=== PATIENT | female | born 1970 | race Caucasian/White ===

== ENCOUNTER 2017-06-01 14:15 | Inpatient (IN) | payer MEDICAID, OTHER ==
[~2017-06-01] VITALS: Ht 160 cm; Wt 80.0 kg
[~2017-06-01 14:15] MED LIST: DICL75 PO
[2017-06-01] MEDS ORDERED: IOHEXOL 350 MG/ML 10 ML VIAL (for RAD DIAG) IVCONTRAST ONE (14:16)
[2017-06-01 14:18] VITALS: BP 190/109; PULSE 103; RESP 18; TEMP 97.9; O2SAT 100
[2017-06-01] MEDS ORDERED: SODIUM CHLOR 0.9% 1000 ML INJ 1,000 ML IV SCH (15:08)
--- NOTE | 2017-06-01 15:10 | PD ---
HPI Chief Complaint: Flank/Kidney Pain Time Seen by Provider: 14:53 Travel History International Travel<30 days: No Contact w/Intl Traveler<30days: No Traveled to known affect area: No History of Present Illness HPI 47-year-old female presents emergency department complaining of right flank and mid abdominal pain with bloating that started yesterday. States that she saw bloody urine this morning he decided to come into the emergency department. Nothing makes her pain better or worse. Pain does not radiate. States that she does have a history of kidney stones. Patient admits to nausea without vomiting. States that she has not had a bowel movement in 4 days which is unusual for her. Patient denies fever, chills, chest pain, shortness of breath. Denies chronic medical issues medication use. LMP May 16. [facility] Past Medical History Medical History: Denies Significant Hx Kidney Stones: Yes Tetanus Vaccination: Unknown Influenza Vaccination: No ?: Not LMP: 05/16/17 Past Surgical History Surgical History: No Previous Surgery Social History Alcohol Use: Yes (sometimes) Tobacco Use: Yes Substance Use: No Allergies-Medications (Allergen,Severity, Reaction): Coded Allergies: No Known Allergies (Unverified Allergy, Unknown, 06/01/17) Reported Meds & Prescriptions Reported Meds & Active Scripts Active No Active Prescriptions or Reported Medications Review of Systems Except as stated in HPI: all other systems reviewed are Neg Physical Exam Narrative GENERAL: WD WN, in mild distress SKIN: Warm and dry. HEAD: Atraumatic. Normocephalic. EYES: Pupils equal and round. No scleral icterus. No injection or drainage. ENT: No nasal bleeding or discharge. Mucous membranes pink and moist. NECK: Trachea midline. No JVD. CARDIOVASCULAR: Regular rate and rhythm. RESPIRATORY: No accessory muscle use. Clear to auscultation. Breath sounds equal bilaterally. GASTROINTESTINAL: Abdomen soft, mildly tender diffusely, MUSCULOSKELETAL: Extremities without clubbing, cyanosis, or edema. No obvious deformities. CVAT right sided. NEUROLOGICAL: Awake and alert. No obvious cranial nerve deficits. Motor grossly within normal limits. Five out of 5 muscle strength in the arms and legs. Normal speech. PSYCHIATRIC: Appropriate mood and affect; insight and judgment normal. Data Data Last Documented VS Vital Signs Date Time Temp Pulse Resp B/P (MAP) Pulse Ox O2 Delivery O2 Flow Rate FiO2 06/01/17 17:39 69 17 151/76 (101) 99 06/01/17 16:01 Room Air 06/01/17 14:18 97.9 Orders Orders Urinalysis - C+S If Indicated (06/01/17 14:55) Iv Access Insert/Monitor (06/01/17 14:55) Ecg Monitoring (06/01/17 14:55) Ed Urine Pregnancytest Poc (06/01/17 14:55) Complete Blood Count With Diff (06/01/17 15:08) Comprehensive Metabolic Panel (06/01/17 15:08) Lipase (06/01/17 15:08) Prothrombin Time / Inr (Pt) (06/01/17 15:08) Act Partial Throm Time (Ptt) (06/01/17 15:08) Oximetry (06/01/17 15:08) Morphine Inj (Morphine Inj) (06/01/17 15:15) Ondansetron Inj (Zofran Inj) (06/01/17 15:15) Sodium Chlor 0.9% 1000 Ml Inj (Ns 1000 M (06/01/17 15:08) Electrocardiogram (06/01/17 15:08) Ketorolac Inj (Toradol Inj) (06/01/17 15:15) Ct Abd/Pel W Iv Contrast(Rout) (06/01/17 ) Iohexol 350 Inj (Omnipaque 350 Inj) (06/01/17 14:16) Tamsulosin (Flomax) (06/01/17 18:00) Admit Order (Ed Use Only) (06/01/17 18:09) Labs Laboratory Tests Test 06/01/17 15:30 06/01/17 15:40 White Blood Count 6.9 TH/MM3 Red Blood Count 5.01 MIL/MM3 Hemoglobin 8.0 GM/DL Hematocrit 27.8 % Mean Corpuscular Volume 55.5 FL Mean Corpuscular Hemoglobin 16.1 PG Mean Corpuscular Hemoglobin Concent 28.9 % Red Cell Distribution Width 19.7 % Platelet Count 188 TH/MM3 Mean Platelet Volume 9.0 FL Neutrophils (%) (Auto) 77.9 % Lymphocytes (%) (Auto) 13.6 % Monocytes (%) (Auto) 7.3 % Eosinophils (%) (Auto) 0.5 % Basophils (%) (Auto) 0.7 % Neutrophils # (Auto) 5.4 TH/MM3 Lymphocytes # (Auto) 0.9 TH/MM3 Monocytes # (Auto) 0.5 TH/MM3 Eosinophils # (Auto) 0.0 TH/MM3 Basophils # (Auto) 0.1 TH/MM3 CBC Comment AUTO DIFF Differential Comment AUTO DIFF CONFIRMED Platelet Estimate NORMAL Platelet Morphology Comment GIANT Ovalocytes 1+ Keratocytes OCC Prothrombin Time 10.3 SEC Prothromb Time International Ratio 1.0 RATIO Activated Partial Thromboplast Time 23.6 SEC Blood Urea Nitrogen 11 MG/DL Creatinine 0.73 MG/DL Random Glucose 90 MG/DL Total Protein 7.3 GM/DL Albumin 3.7 GM/DL Calcium Level 9.0 MG/DL Alkaline Phosphatase 61 U/L Aspartate Amino Transf (AST/SGOT) 12 U/L Alanine Aminotransferase (ALT/SGPT) 14 U/L Total Bilirubin 0.4 MG/DL Sodium Level 136 MEQ/L Potassium Level 3.5 MEQ/L Chloride Level 105 MEQ/L Carbon Dioxide Level 23.4 MEQ/L Anion Gap 8 MEQ/L Estimat Glomerular Filtration Rate 86 ML/MIN Lipase 107 U/L Urine Color LIGHT-YELLOW Urine Turbidity CLEAR Urine pH 5.5 Urine Specific [place] 1.008 Urine Protein NEG mg/dL Urine Glucose (UA) NEG mg/dL Urine Ketones NEG mg/dL Urine Occult Blood MOD Urine Nitrite NEG Urine Bilirubin NEG Urine Urobilinogen LESS THAN 2.0 MG/DL Urine Leukocyte Esterase SMALL Urine RBC 7 /hpf Urine WBC 2 /hpf Urine Squamous Epithelial Cells <1 /hpf Urine Bacteria OCC /hpf Urine Hyaline Casts 1 /lpf Urine Mucus FEW /lpf Microscopic Urinalysis Comment CULT NOT INDICATED MDM Medical Decision Making Medical Screen Exam Complete: Yes Emergency Medical Condition: Yes Differential Diagnosis Pyelonephritis, nephrolithiasis, urinary tract infection, cystitis Narrative Course 47-year-old female presents emergency department complaining of right flank and mid abdominal pain with bloating that started yesterday. States that she saw bloody urine this morning he decided to come into the emergency department. Nothing makes her pain better or worse. Pain does not radiate. States that she does have a history of kidney stones. Patient admits to nausea without vomiting. States that she has not had a bowel movement 4 days which is unusual for her. Patient denies fever, chills, chest pain, shortness of breath. Denies chronic medical issues medication use. LMP May 16. EKG sinus rhythm without STEMI pattern, rate 69 Vital signs stable. Patient administered morphine, toradol, Zofran, IV fluids. CBC & BMP Diagram 06/01/17 15:30 Total Protein 7.3, Albumin 3.7, Calcium Level 9.0, Alkaline Phosphatase 61, Aspartate Amino Transf (AST/SGOT) 12 L, Alanine Aminotransferase (ALT/SGPT) 14, Total Bilirubin 0.4 Suspect that her anemia is chronic however, she has no known prior history of anemia. UA shows moderate blood, RBCs, leukocyte esterase. Last Impressions Abdomen/Pelvis CT 06/01/17 0000 Signed Impressions: Service Date/Time: Thursday, June 01, 2017 17:08 - CONCLUSION: 1. 5 x 10 mm proximal right ureteral calculus with mild hydroureter and hydronephrosis. 2. Cystic structure in the right adnexa. Niall Rangel MD After discussion with the patient the findings of the abdomen CT, I advised that she remain in the hospital for observation. Patient did agree. Patient continues to deny history of anemia. States her pain is well controlled with the medications given today which includes morphine, Toradol, IV fluids. Patient denies nausea or vomiting at this time. Flomax administered. Patient be admitted for observation. Urology consult recommended. Consider hematology consult. Diagnosis Primary Impression: Anemia Qualified Codes: D64.89 - Other specified anemias Additional Impressions: Hydronephrosis Qualified Codes: N13.2 - Hydronephrosis with renal and ureteral calculous obstruction Nephrolithiasis Admitting Information Admitting Physician Requests: Observation Scripts No Active Prescriptions or Reported Meds Condition: Stable Kelsey Stanley Jun 01, 2017 15:10
[2017-06-01] MEDS ORDERED: MORPHINE SULFATE 4 MG/ML INJ IV PUSH ONE (15:15)
[2017-06-01] MEDS ORDERED: ONDANSETRON HCL 4 MG/2 ML VIAL IVP ONE (15:15)
[2017-06-01] MEDS ORDERED: KETOROLAC TROMETHAMINE 60 MG/2 ML (IM) VIAL IM ONE (15:15)
[2017-06-01 16:01] VITALS: BP 170/94; PULSE 86; RESP 18; O2SAT 100
[2017-06-01 16:28] LABS: AUTOMATED NEUTROPHIL # 5.4 TH/MM3 (1.8-7.7); BASOPHIL # 0.1 TH/MM3 (0-0.2); BASOPHIL % 0.7 % (0.0-2.0); EOSINOPHIL % 0.5 % (0.0-4.0); HEMATOCRIT 27.8 % (35.0-46.0); LYMPH % 13.6 % (9.0-44.0); LYMPHOCYTE # 0.9 TH/MM3 (1.0-4.8); MEAN CELL VOLUME 55.5 FL (80.0-100.0); MEAN CORPUSCULAR HEMOGLOBIN 16.1 PG (27.0-34.0); MONO % 7.3 % (0.0-8.0); MONOCYTE # 0.5 TH/MM3 (0-0.9); NEUT % 77.9 % (16.0-70.0); PLATELET COUNT 188 TH/MM3 (150-450); RED BLOOD COUNT 5.01 MIL/MM3 (4.00-5.30); RED CELL DISTRIBUTION WIDTH 19.7 % (11.6-17.2); WHITE BLOOD COUNT 6.9 TH/MM3 (4.0-11.0)
[2017-06-01 16:31] LABS: ALBUMIN 3.7 GM/DL (3.4-5.0); AST (GOT) 12 U/L (15-37); BICARBONATE 23.4 MEQ/L (21.0-32.0); BLOOD UREA NITROGEN 11 MG/DL (7-18); CHLORIDE 105 MEQ/L (98-107); CREATININE 0.73 MG/DL (0.50-1.00); GLOMERULAR FILTRATION RATE 86 ML/MIN (>89); GLUCOSE,RANDOM 90 MG/DL (74-106); PROTHROMBIN TIME - PATIENT 10.3 SEC (9.8-11.6); SODIUM (NA) 136 MEQ/L (136-145)
[2017-06-01 16:33] LABS: ALT (GPT) 14 U/L (10-53)
[2017-06-01 16:34] LABS: ALKALINE PHOSPHATASE 61 U/L (45-117); MEAN CORPUSCULAR HGB CONC 28.9 % (32.0-36.0); TOTAL BILIRUBIN ADULT 0.4 MG/DL (0.2-1.0); TOTAL PROTEIN 7.3 GM/DL (6.4-8.2)
[2017-06-01 16:35] LABS: BACTERIA, URINE OCC /hpf; BILIRUBIN, URINE NEG (NEG); BLOOD, URINE MOD (NEG); GLUCOSE,URINE NEG (NEG); HYALINE CAST, URINE 1 /lpf (RARE); KETONE, URINE NEG (NEG); MUCUS URINE FEW /lpf (OCC); NITRITE,URINE NEG (NEG); PH, URINE 5.5 (5.0-8.5); SQUAMOUS EPITHELIAL CELL URINE <1 /hpf (0-5); URINE COLOR LIGHT-YELLOW (YELLW/STRAW); URINE LEUKOCYTE ESTERASE SMALL (NEG)
[2017-06-01 17:23] LABS: KERATOCYTES OCC (NORMAL); OVALOCYTES 1+ (NORMAL)
[2017-06-01 17:39] VITALS: BP 151/76; PULSE 69; RESP 17; O2SAT 99
--- NOTE | 2017-06-01 17:42 | RADRPT ---
EXAM DATE/TIME: 06/01/2017 17:08 [facility] COMPARISON: No previous studies available for comparison. INDICATIONS : Patient complains of right flank pain. IV CONTRAST: 96 cc Omnipaque 350 (iohexol) IV ORAL CONTRAST: No oral contrast ingested. RADIATION DOSE: 8.24 CTDIvol (mGy) MEDICAL HISTORY : Renal calculi. SURGICAL HISTORY : None. ENCOUNTER: Initial ACUITY: 1 day PAIN SCALE: 5/10 LOCATION: Right flank TECHNIQUE: Volumetric scanning of the abdomen and pelvis was performed. Using automated exposure control and ad justment of the mA and/or kV according to patient size, radiation dose was kept as low as reasonably achievable to obtain optimal diagnostic quality images. DICOM format image data is available electro nically for review and comparison. FINDINGS: LOWER LUNGS: The visualized lower lungs are clear. LIVER: Homogeneous density without lesion. There is no dilation of the biliary tree. No calcified gallston es. SPLEEN: Normal size without lesion. PANCREAS: Within normal limits. KIDNEYS: The left kidney is unremarkable in appearance. There is mild right hydronephrosis with dilatation of the proximal right ureter down to a 5 x 10 mm proximal right ureteral calculus. The ureter below this point appears unremarkable. The left ureter is within normal limits. ADRENAL GLANDS: Within normal limits. VASCULAR: There is no aortic aneurysm. BOWEL/MESENTERY: The stomach, small bowel, and colon demonstrate no acute abnormality. There is no free intraperitone al air or fluid. ABDOMINAL WALL: Within normal limits. RETROPERITONEUM: There is no lymphadenopathy. BLADDER: No wall thickening or mass. REPRODUCTIVE: Within normal limits. INGUINAL: There is no lymphadenopathy or hernia. MUSCULOSKELETAL: Within normal limits for patient age. CONCLUSION: 1. 5 x 10 mm proximal right ureteral calculus with mild hydroureter and hydronephrosis. 2. Cystic structure in the right adnexa. Niall Rangel MD on June 01, 2017 at 17:32 Board Certified Radiologist. This report was verified electronically.
[2017-06-01] MEDS ORDERED: TAMSULOSIN HCL 0.4 MG CAP PO ONE (18:00)
--- NOTE | 2017-06-01 18:27 | HHI.HP ---
[facility] Service [facility] Primary Care Physician No Primary Care Physician Admission Diagnosis Hydronephrosis, nephrolithiasis Diagnoses: (1) Anemia Diagnosis: Principal (2) Nephrolithiasis Diagnosis: Principal (3) Hydronephrosis Diagnosis: Principal Chief Complaint: right-sided flank pain Travel History International Travel<30 Days: No Contact w/Intl Traveler <30 Da: No Traveled to Known Affected Are: No History of Present Illness patient is a 47 y/o female with history of kidney stone who presented to ER with right-sided flank pain. she says that the pain started yesterday and gradually got worse. pain was associated with nausea, chills and hematuria. she denies any fever, vomiting. she was found to have anemia at the time of presentation. on further questioning she says that she heavy menstrual bleeding in the past although they've been regular. she denies any blood in the stool or dark stools. Review of Systems Constitutional: COMPLAINS OF: Chills Gastrointestinal: COMPLAINS OF: Abdominal pain, Nausea Past Family Social History Past Medical History hypertension? Past Surgical History none reported. Reported Medications none reported. Allergies: Coded Allergies: No Known Allergies (Unverified Allergy, Unknown, 06/01/17) Active Ordered Medications Inpatient Medications Ketorolac Tromethamine (Toradol Inj) 60 mg ONCE ONCE IM Last administered on at 15:55; Start 06/01/17 at 15:15; Stop 06/01/17 at 15:16; Status DC Morphine Sulfate (Morphine Inj) 4 mg ONCE ONCE IV PUSH Last administered on 06/01/17at 15:54; Start 06/01/17 at 15:15; Stop 06/01/17 at 15:16; Status DC Ondansetron HCl (Zofran Inj) 4 mg ONCE ONCE IVP Last administered on 06/01/17at 15:54; Start 06/01/17 at 15:15; Stop 06/01/17 at 15:16; Status DC Sodium Chloride 1,000 ml @ 1,000 mls/hr Q1H IV Last administered on 06/01/17at 15:54; Start 06/01/17 at 15:08; Stop 06/01/17 at 16:07; Status DC Tamsulosin HCl (Flomax) 0.4 mg ONCE ONCE PO ; Start 06/01/17 at 18:00; Stop 06/01 at 18:01; Status DC Family History not relevant to this presentation. Social History smokes ten cigarettes a day- drinks occasionally. Physical Exam Vital Signs Vital Signs Date Time Temp Pulse Resp B/P (MAP) Pulse Ox O2 Delivery O2 Flow Rate FiO2 06/01/17 17:39 69 17 151/76 (101) 99 06/01/17 16:01 86 18 170/94 (119) 100 Room Air 06/01/17 14:18 97.9 103 18 190/109 (136) 100 Physical Exam GENERAL: This is a well-nourished, well-developed patient, in no apparent distress. SKIN: No rashes, ecchymoses or lesions. Cool and dry. HEAD: Atraumatic. Normocephalic. No temporal or scalp tenderness. EYES: Pupils equal round and reactive. Extraocular motions intact. No scleral icterus. No injection or drainage. ENT: Nose without bleeding, purulent drainage or septal hematoma. Throat without erythema, tonsillar hypertrophy or exudate. Uvula midline. Airway patent. NECK: Trachea midline. No JVD or lymphadenopathy. Supple, nontender, no meningeal signs. CARDIOVASCULAR: Regular rate and rhythm without murmurs, gallops, or rubs. RESPIRATORY: Clear to auscultation. Breath sounds equal bilaterally. No wheezes , rales, or rhonchi. GASTROINTESTINAL: Abdomen soft,right flank tenderness, nondistended. No hepato- splenomegaly, or palpable masses. No guarding. MUSCULOSKELETAL: Extremities without clubbing, cyanosis, or edema. No joint tenderness, effusion, or edema noted. No calf tenderness. Negative Homans sign bilaterally. NEUROLOGICAL: Awake and alert. Cranial nerves II through XII intact. Motor and sensory grossly within normal limits. Five out of 5 muscle strength in all muscle groups. Normal speech. Laboratory Laboratory Tests Test 06/01/17 15:30 06/01/17 15:40 White Blood Count 6.9 Red Blood Count 5.01 Hemoglobin 8.0 Hematocrit 27.8 Mean Corpuscular Volume 55.5 Mean Corpuscular Hemoglobin 16.1 Mean Corpuscular Hemoglobin Concent 28.9 Red Cell Distribution Width 19.7 Platelet Count 188 Mean Platelet Volume 9.0 Neutrophils (%) (Auto) 77.9 Lymphocytes (%) (Auto) 13.6 Monocytes (%) (Auto) 7.3 Eosinophils (%) (Auto) 0.5 Basophils (%) (Auto) 0.7 Neutrophils # (Auto) 5.4 Lymphocytes # (Auto) 0.9 Monocytes # (Auto) 0.5 Eosinophils # (Auto) 0.0 Basophils # (Auto) 0.1 CBC Comment AUTO DIFF Differential Comment AUTO DIFF CONFIRMED Platelet Estimate NORMAL Platelet Morphology Comment GIANT Ovalocytes 1+ Keratocytes OCC Prothrombin Time 10.3 Prothromb Time International Ratio 1.0 Activated Partial Thromboplast Time 23.6 Blood Urea Nitrogen 11 Creatinine 0.73 Random Glucose 90 Total Protein 7.3 Albumin 3.7 Calcium Level 9.0 Alkaline Phosphatase 61 Aspartate Amino Transf (AST/SGOT) 12 Alanine Aminotransferase (ALT/SGPT) 14 Total Bilirubin 0.4 Sodium Level 136 Potassium Level 3.5 Chloride Level 105 Carbon Dioxide Level 23.4 Anion Gap 8 Estimat Glomerular Filtration Rate 86 Lipase 107 Urine Color LIGHT-YELLOW Urine Turbidity CLEAR Urine pH 5.5 Urine Specific [place] 1.008 Urine Protein NEG Urine Glucose (UA) NEG Urine Ketones NEG Urine Occult Blood MOD Urine Nitrite NEG Urine Bilirubin NEG Urine Urobilinogen LESS THAN 2.0 Urine Leukocyte Esterase SMALL Urine RBC 7 Urine WBC 2 Urine Squamous Epithelial Cells <1 Urine Bacteria OCC Urine Hyaline Casts 1 Urine Mucus FEW Microscopic Urinalysis Comment CULT NOT INDICATED Result Diagram: 06/01/17 1530 06/01/17 1530 Imaging Last Impressions Abdomen/Pelvis CT 06/01/17 0000 Signed Impressions: Service Date/Time: Thursday, June 01, 2017 17:08 - CONCLUSION: 1. 5 x 10 mm proximal right ureteral calculus with mild hydroureter and hydronephrosis. 2. Cystic structure in the right adnexa. MD Chandrakant Valdez VTE Risk Assessment Capmary bethi VTE Risk Assessment: Mod/High Risk (score >= 2) Caprini Risk Assessment Model Point Value = 1 Point Value = 2 Point Value = 3 Point Value = 5 Age 41-60 Minor surgery BMI > 25 kg/m2 Swollen legs Varicose veins or History of unexplained or recurrent spontaneous Oral contraceptives or hormone replacement Sepsis (< 1 month) Serious lung disease, including pneumonia (< 1 month) Abnormal pulmonary function Acute myocardial infarction Congestive heart failure (< 1 month) History of inflammatory bowel disease Medical patient at bed rest Age 61-74 Arthroscopic surgery Major open surgery (> 45 min) Laparoscopic surgery (> 45 min) Malignancy Confined to bed (> 72 hours) Immobilizing plaster cast Central venous access Age >= 75 History of VTE Family history of VTE Factor V Leiden Prothrombin [id number] Lupus anticoagulant Anticardiolipin antibodies Elevated serum homocysteine Heparin-induced thrombocytopenia Other congenital or acquired thrombophilia Stroke (< 1 month) Elective arthroplasty Hip, pelvis, or leg fracture Acute spinal cord injury (< 1 month) Prophylaxis Regimen Total Risk Factor Score Risk Level Prophylaxis Regimen 0-1 Low Early ambulation 2 Moderate Order ONE of the following: *Sequential Compression Device (SCD) *Heparin 5000 units SQ BID 3-4 Higher Order ONE of the following medications: *Heparin 5000 units SQ TID *Enoxaparin/Lovenox 40 mg SQ daily (WT < 150 kg, CrCl > 30 mL/min) *Enoxaparin/Lovenox 30 mg SQ daily (WT < 150 kg, CrCl > 10-29 mL/min) *Enoxaparin/Lovenox 30 mg SQ BID (WT < 150 kg, CrCl > 30 mL/min) AND/OR *Sequential Compression Device (SCD) 5 or more Highest Order ONE of the following medications: *Heparin 5000 units SQ TID (Preferred with Epidurals) *Enoxaparin/Lovenox 40 mg SQ daily (WT < 150 kg, CrCl > 30 mL/min) *Enoxaparin/Lovenox 30 mg SQ daily (WT < 150 kg, CrCl > 10-29 mL/min) *Enoxaparin/Lovenox 30 mg SQ BID (WT < 150 kg, CrCl > 30 mL/min) AND *Sequential Compression Device (SCD) Assessment and Plan Assessment and Plan A/P - nephrolithiasis with right-sided hydronephrosis start on Flomax- continue with pain control, and antiemetics as needed- consult Urology. -anemia- hypochromic, microcytic-likely due to abnormal uterine bleeding. check iron panel- will monitor H/H for now; CBC in am. -questionable history of hypertension; vasotec prn - will monitor BP for now. -DVT prophylaxis with SDD's. Discussed Condition With ER physician and the patient. Problem Qualifiers (1) Anemia: Qualified Codes: D64.89 - Other specified anemias (2) Hydronephrosis: Qualified Codes: N13.2 - Hydronephrosis with renal and ureteral calculous obstruction Jonn Lombardi MD Jun 01, 2017 18:27
[2017-06-01] MEDS ORDERED: ENALAPRILAT 1.25 MG/ML VIAL IV PUSH PRN (18:30)
[2017-06-01] MEDS ORDERED: ONDANSETRON HCL 4 MG/2 ML VIAL IV PUSH PRN (18:30)
[2017-06-01] MEDS ORDERED: MORPHINE SULFATE 2 MG/ML INJ IV PUSH PRN (18:30)
[2017-06-01 19:41] VITALS: BP 169/95; PULSE 75; RESP 16; TEMP 98.5; O2SAT 100
[2017-06-01] MEDS: SODIUM CHLOR 0.9% 1000 ML INJ 1,000 ML IV SCH (20:01)
[2017-06-01] MEDS: ACETAMINOPHEN/HYDROcodone 325 MG/5 MG TAB PO PRN (20:14)
[2017-06-01 20:26] LABS: IRON (FE) 13 MCG/DL (50-170)
[2017-06-01 20:33] LABS: % SATURATION IRON PROFILE 2.8 % (20-50); FERRITIN 2 NG/ML (8-252); TOTAL IRON BINDING CAPACITY 472 MCG/DL (250-450)
[2017-06-01 22:43] VITALS: BP 114/73; PULSE 79; RESP 16; TEMP 98.7; O2SAT 99
[2017-06-02] MEDS: SODIUM CHLOR 0.9% 1000 ML INJ 1,000 ML IV SCH ×2 (03:14→13:32)
[2017-06-02 03:16] VITALS: BP 143/75; PULSE 80; RESP 18; TEMP 98.2; O2SAT 100
[2017-06-02 06:50] LABS: AUTOMATED NEUTROPHIL # 3.6 TH/MM3 (1.8-7.7); BASOPHIL % 0.7 % (0.0-2.0); EOSINOPHIL # 0.1 TH/MM3 (0-0.4); EOSINOPHIL % 1.7 % (0.0-4.0); HEMATOCRIT 24.6 % (35.0-46.0); LYMPH % 22.1 % (9.0-44.0); LYMPHOCYTE # 1.2 TH/MM3 (1.0-4.8); MEAN CELL VOLUME 55.6 FL (80.0-100.0); MEAN CORPUSCULAR HEMOGLOBIN 15.7 PG (27.0-34.0); MEAN PLATELET VOLUME 9.1 FL (7.0-11.0); MONO % 10.4 % (0.0-8.0); MONOCYTE # 0.6 TH/MM3 (0-0.9); NEUT % 65.1 % (16.0-70.0); PLATELET COUNT 168 TH/MM3 (150-450); RED BLOOD COUNT 4.43 MIL/MM3 (4.00-5.30); RED CELL DISTRIBUTION WIDTH 19.8 % (11.6-17.2); WHITE BLOOD COUNT 5.5 TH/MM3 (4.0-11.0)
[2017-06-02 06:52] LABS: MEAN CORPUSCULAR HGB CONC 28.3 % (32.0-36.0)
[2017-06-02 07:52] LABS: OVALOCYTES 1+ (NORMAL)
[2017-06-02 08:23] VITALS: BP 120/55; PULSE 58; RESP 20; TEMP 98.2; O2SAT 96
[2017-06-02] MEDS: TAMSULOSIN HCL 0.4 MG CAP PO SCH (08:57)
--- NOTE | 2017-06-02 11:29 | HHI.PR ---
Subjective Remarks Follow-up for nephrolithiasis Patient stated that pain is better controlled but she continues have pain. Pain described in the B/L groin area. Deny any nausea or vomiting. Deny any fevers. Patient currently nothing by mouth awaiting for recommendation from neurologist. Her hemoglobin also is 7.0. She denies any active bleeding. Deny any chest pain, shortness of breathing, lightheadedness or dizziness. Patient stated that she has not seen a doctor at all. She stated that she moved here from [place] 3 years ago. She stated that at times she does have heavy bleeding with the last 3 months has been normal. Objective Vitals Vital Signs Date Time Temp Pulse Resp B/P (MAP) Pulse Ox O2 Delivery O2 Flow Rate FiO2 06/02/17 08:23 98.2 58 20 120/55 (76) 96 06/02/17 05:00 18 06/02/17 03:16 98.2 80 18 143/75 (97) 100 06/01/17 22:43 98.7 79 16 114/73 (87) 99 06/01/17 21:17 18 06/01/17 19:41 98.5 75 16 169/95 (119) 100 06/01/17 17:39 69 17 151/76 (101) 99 06/01/17 16:01 86 18 170/94 (119) 100 Room Air 06/01/17 14:18 97.9 103 18 190/109 (136) 100 I/O 06/01/17 06/01/17 06/01/17 06/02/17 06/02/17 06/02/17 07:00 15:00 23:00 07:00 15:00 23:00 Intake Total 1000 ml 240 ml Balance 1000 ml 240 ml Intake Oral 240 ml IV Total 1000 ml # Voids 3 Result Diagram: 06/02/17 0527 06/01/17 1530 Objective Remarks GENERAL: in NAD NECK: Supple, trachea midline. No JVD or lymphadenopathy. CARDIOVASCULAR: Regular rate and rhythm without murmurs, gallops, or rubs. RESPIRATORY: Breath sounds equal bilaterally. No accessory muscle use. GASTROINTESTINAL: Abdomen soft and nondistended. B/L lower abdominal pain. MUSCULOSKELETAL: No cyanosis, or edema. BACK: Nontender without obvious deformity. No CVA tenderness. Medications and IVs Current Medications Morphine Sulfate (Morphine Inj) 4 mg ONCE ONCE IV PUSH Last administered on 15:54; Start 06/01/17 at 15:15; Stop 06/01/17 at 15:16; Status DC Ondansetron HCl (Zofran Inj) 4 mg ONCE ONCE IVP Last administered on 06/01/17at 15:54; Start 06/01/17 at 15:15; Stop 06/01/17 at 15:16; Status DC Sodium Chloride 1,000 ml @ 1,000 mls/hr Q1H IV Last administered on 06/01/17at 15:54; Start 06/01/17 at 15:08; Stop 06/01/17 at 16:07; Status DC Ketorolac Tromethamine (Toradol Inj) 60 mg ONCE ONCE IM Last administered on at 15:55; Start 06/01/17 at 15:15; Stop 06/01/17 at 15:16; Status DC Iohexol (Omnipaque 350 Inj) 96 ml STK-MED ONCE IVCONTRAST Last administered on 06/01/17 17:21; Start 06/01/17 at 14:16; Stop 06/01/17 at 17:20; Status DC Tamsulosin HCl (Flomax) 0.4 mg ONCE ONCE PO Last administered on 06/01/17 20: 01; Start 06/01/17 at 18:00; Stop 06/01/17 at 18:01; Status DC Sodium Chloride 1,000 ml @ 100 mls/hr Q10H IV Last administered on 06/02/17 03 :14; Start 06/01/17 at 18:30 Ondansetron HCl (Zofran Inj) 4 mg Q8HR PRN IV PUSH NAUSEA; Start 06/01/17 at 18: 30 Acetaminophen/ Hydrocodone Bitart ([place] 5-325 Mg) 1 tab Q4H PRN PO PAIN 1-5 Last administered on 06/01/17at 20:14; Start 06/01/17 at 18:30 Morphine Sulfate (Morphine Inj) 2 mg Q4H PRN IV PUSH PAIN 6-10 Last administered on 06/02/17 03:14; Start 06/01/17 at 18:30 Enalaprilat (Vasotec Inj) 1.25 mg Q8H PRN IV PUSH SBP> OR = 180, DBP> OR = 100 ; Start 06/01/17 at 18:30 Tamsulosin HCl (Flomax) 0.4 mg DAILY PO Last administered on 06/02/17at 08:57; Start 06/02/17 at 09:00 A/P Problem List: (1) Anemia ICD Code: D64.9 - Anemia, unspecified Status: Acute (2) Nephrolithiasis ICD Code: N20.0 - Calculus of kidney Status: Acute (3) Hydronephrosis ICD Code: N13.30 - Unspecified hydronephrosis Status: Acute Assessment and Plan This is a 47-year-old female who presented with abdominal pain Nephrolithiasis with right-sided hydronephrosis -Found on CT scan of the abdomen/pelvis. -Patient currently on start on Flomax - continue with pain control, and antiemetics as needed -Pending neurologist consult. Anemia -Hemoglobin dropped significantly today but may also be due to dehydration. Most likely this is due to abnormal uterine bleeding. Will recheck hemoglobin, TSH and do a transvaginal ultrasound. -Reviewed iron studies which suggests iron deficiency anemia. -Will start patient on ferrous sulfate. DVT prophylaxis with SCD's. Problem Qualifiers (1) Anemia: Qualified Codes: D64.89 - Other specified anemias (2) Hydronephrosis: Qualified Codes: N13.2 - Hydronephrosis with renal and ureteral calculous obstruction Greer Smith MD Jun 02, 2017 11:29
[2017-06-02 11:53] VITALS: BP 122/60; PULSE 80; RESP 18; TEMP 98.6; O2SAT 98
[2017-06-02] MEDS: KETOROLAC TROMETHAMINE 30 MG/ML (IVP) VIAL IV PUSH SCH ×2 (13:32→18:00)
--- NOTE | 2017-06-02 14:43 | RADRPT ---
EXAM DATE/TIME: 06/02/2017 13:04 [facility] COMPARISON: No previous studies available for comparison. INDICATIONS : Right sided pelvic pain. Anemic. MEDICAL HISTORY : Hypertension. Renal calculi. Abdominal/pelvic pain. Tobacco use. SURGICAL HISTORY : None. ENCOUNTER: Initial ACUITY: 2 days PAIN SCORE: 7/10 LOCATION: Bilateral pelvis MEASUREMENTS: UTERUS: 10.5 x 7.1 x 6.2 cm ENDOMETRIAL STRIPE: >20 mm RIGHT OVARY: 2.9 x 3.7 x 2.2 cm LEFT OVARY: 3.0 x 2.6 x 1.7 cm FINDINGS: UTERUS: The myometrium has homogeneous echotexture without mass. Endometrium is prominent. Nabothian cyst se en measuring 2.4 cm. Hypoechoic area lower uterine segment measures 11 x 12 x 10 mm likely leiomyoma. RIGHT OVARY: Complex cysts containing internal echoes and septations measures 21 x 18 x 21 mm. LEFT OVARY: Ovary contains no mass or significant cystic lesion. MISCELLANEOUS: No free fluid. CONCLUSION: 1. Prominent endometrium likely related to normal phase of menstrual cycle. 2. Probable uterine leiomyoma measuring 1.2 cm. 3. Small complex cysts right ovary measures 2.1 cm. Chris Hilton MD on June 02, 2017 at 14:38 Board Certified Radiologist. This report was verified electronically.
--- NOTE | 2017-06-02 15:17 | EKG ---
Date Performed: 06/01/2017 Time Performed: 17:22:14 PTAGE: 47 years EKG: Sinus rhythm POSSIBLE RIGHT VENTRICULAR CONDUCTION DELAY NONSPECIFIC T-WAVE ABNORMALITY BORDERLINE ECG NO PREVIOUS TRACING DOCTOR: Sameer Gómez Interpretating Date/Time 06/02/2017 15:17:07
--- NOTE | 2017-06-02 16:54 | PD.CONS ---
HPI Service Urology Consult Requested By Primary Care Physician No Primary Care Physician Diagnosis: (1) Anemia ICD Code: D64.9 - Anemia, unspecified (2) Nephrolithiasis ICD Code: N20.0 - Calculus of kidney (3) Hydronephrosis ICD Code: N13.30 - Unspecified hydronephrosis History of Present Illness 47yo female with history of nephrolithiasis seen in consultation for right obstructing ureteral stone. Patient reports her pain began about 2 days ago and has progressively worsened. She describes the pain as sharp and stabbing located in the right flank, intermittent however 10/10. No fevers. Some Nausea, no vomiting. She has had stones in the past, however never required surgical intervention. Review of Systems ROS Limitations: Clinical Condition Constitutional: DENIES: Fever Endocrine: DENIES: Polydipsia Ears, nose, mouth, throat: DENIES: Hearing loss Respiratory: DENIES: Cough Cardiovascular: DENIES: Chest pain Gastrointestinal: COMPLAINS OF: Abdominal pain, Nausea, DENIES: Vomiting Genitourinary: COMPLAINS OF: Urinary frequency Musculoskeletal: COMPLAINS OF: Back pain Hematologic/lymphatic: DENIES: Bruising Neurologic: DENIES: Headache Psychiatric: DENIES: Anxiety Except as stated in HPI: all other systems reviewed are Neg Past Family Social History Past Medical History Questionable HTN Past Surgical History No past surgeries Reported Medications Reported Meds & Active Scripts Active No Active Prescriptions or Reported Medications Allergies: Coded Allergies: No Known Allergies (Unverified Allergy, Unknown, 06/01/17) Active Ordered Medications Current Medications Medications (Trade) Dose Ordered Sig/Jay Route Start Time Stop Time Status Last Admin Sodium Chloride 1,000 ml @ 100 mls/hr Q10H IV 06/01/17 18:30 06/03/17 08:27 (Zofran Inj) 4 mg Q8HR PRN IV PUSH 06/01/17 18:30 ([place] 5-325 Mg) 1 tab Q4H PRN PO 06/01/17 18:30 06/03/17 02:49 (Morphine Inj) 2 mg Q4H PRN IV PUSH 06/01/17 18:30 06/02/17 03:14 (Vasotec Inj) 1.25 mg Q8H PRN IV PUSH 06/01/17 18:30 (Flomax) 0.4 mg DAILY PO 06/02/17 09:00 06/03/17 08:26 (Ferrous Sulfate) 325 mg BID PO 06/02/17 21:00 06/03/17 08:26 (Toradol Inj) 15 mg TID IV PUSH 06/02/17 13:00 06/07/17 12:59 06/03/17 08:27 Family History Family history reviewed and noncontributory to present illness Social History No Etoh, Positive smoking history Physical Exam Vital Signs Date Time Temp Pulse Resp B/P (MAP) Pulse Ox O2 Delivery O2 Flow Rate FiO2 06/02/17 11:53 98.6 80 18 122/60 (80) 98 06/02/17 08:23 98.2 58 20 120/55 (76) 96 06/02/17 05:00 18 06/02/17 03:16 98.2 80 18 143/75 (97) 100 06/01/17 22:43 98.7 79 16 114/73 (87) 99 06/01/17 21:17 18 06/01/17 19:41 98.5 75 16 169/95 (119) 100 06/01/17 17:39 69 17 151/76 (101) 99 Physical Exam GENERAL: This is a well-nourished, well-developed patient, in no apparent distress. SKIN: No rashes, ecchymoses or lesions. Cool and dry. HEAD: Atraumatic. Normocephalic. EYES: Extraocular motions intact. No scleral icterus. No injection or drainage. ENT: Nose without bleeding, purulent drainage. Airway patent. NECK: Trachea midline. No JVD or lymphadenopathy. CARDIOVASCULAR: Normal pulses RESPIRATORY: Nonlabored GASTROINTESTINAL: Abdomen soft, non-tender, nondistended. GENITOURINARY: Right CVA tenderness MUSCULOSKELETAL: Extremities without clubbing, cyanosis, or edema. NEUROLOGICAL: Awake and alert. Motor and sensory grossly within normal limits. Normal speech. Lab results reviewed: Yes Laboratory Tests Test 06/02/17 05:27 White Blood Count 5.5 Red Blood Count 4.43 Hemoglobin 7.0 Hematocrit 24.6 Mean Corpuscular Volume 55.6 Mean Corpuscular Hemoglobin 15.7 Mean Corpuscular Hemoglobin Concent 28.3 Red Cell Distribution Width 19.8 Platelet Count 168 Mean Platelet Volume 9.1 Neutrophils (%) (Auto) 65.1 Lymphocytes (%) (Auto) 22.1 Monocytes (%) (Auto) 10.4 Eosinophils (%) (Auto) 1.7 Basophils (%) (Auto) 0.7 Neutrophils # (Auto) 3.6 Lymphocytes # (Auto) 1.2 Monocytes # (Auto) 0.6 Eosinophils # (Auto) 0.1 Basophils # (Auto) 0.0 CBC Comment AUTO DIFF Differential Comment AUTO DIFF CONFIRMED Platelet Estimate NORMAL Platelet Morphology Comment ENLARGED Ovalocytes 1+ Result Diagram: 06/02/17 0527 06/01/17 1530 Personally reviewed images: Yes Imaging Last Impressions Pelvis Ultrasound 06/02/17 0000 Signed Impressions: Service Date/Time: Friday, June 02, 2017 13:04 - CONCLUSION: 1. Prominent endometrium likely related to normal phase of menstrual cycle. 2. Probable uterine leiomyoma measuring 1.2 cm. 3. Small complex cysts right ovary measures 2.1 cm. Chris Hilton MD Abdomen/Pelvis CT 06/01/17 0000 Signed Impressions: Service Date/Time: Thursday, June 01, 2017 17:08 - CONCLUSION: 1. 5 x 10 mm proximal right ureteral calculus with mild hydroureter and hydronephrosis. 2. Cystic structure in the right adnexa. Niall Rangel MD Assessment and Plan Problem List: (1) Hydronephrosis ICD Code: N13.30 - Unspecified hydronephrosis Status: Acute (2) Nephrolithiasis ICD Code: N20.0 - Calculus of kidney Status: Acute Assessment and Plan -Discussed findings with patient including size and location of stone. She has a very small chance of passing the stone, therefotre surgical intervention with ureteral stent was recommended to alleviate pain, prevent infection, and protect -At this time, the patient is hesitant to undergo surgery and would like more time with pain control. She agrees to surgery on tomorrow (Sunday) if her pain does not improve -NPO at midnight -Will follow -Potential cysto, right ureteral stent placement Problem Qualifiers (1) Anemia: Qualified Codes: D64.89 - Other specified anemias (2) Hydronephrosis: Qualified Codes: N13.2 - Hydronephrosis with renal and ureteral calculous obstruction Noah Chahal MD Jun 02, 2017 16:54
[2017-06-02 19:59] VITALS: BP 179/81; PULSE 95; RESP 16; TEMP 98.8; O2SAT 100
[2017-06-02] MEDS: FERROUS SULFATE 325 MG (65 MG ELEMENTAL IRON) TAB PO SCH (21:08)
[2017-06-02] MEDS: ACETAMINOPHEN/HYDROcodone 325 MG/5 MG TAB PO PRN (21:09)
[2017-06-02 23:23] VITALS: BP 117/71; PULSE 91; RESP 16; TEMP 98.9; O2SAT 99
[2017-06-03] MEDS: ACETAMINOPHEN/HYDROcodone 325 MG/5 MG TAB PO PRN ×2 (02:49→19:26)
[2017-06-03] MEDS: SODIUM CHLOR 0.9% 1000 ML INJ 1,000 ML IV SCH ×3 (02:50→19:26)
[2017-06-03 03:38] VITALS: BP 124/84; PULSE 76; RESP 16; TEMP 98.4; O2SAT 100
[2017-06-03 07:06] LABS: HEMATOCRIT 24.9 % (35.0-46.0); HEMOGLOBIN 7.1 GM/DL (11.6-15.3); MEAN CELL VOLUME 55.4 FL (80.0-100.0); MEAN CORPUSCULAR HEMOGLOBIN 15.8 PG (27.0-34.0); MEAN PLATELET VOLUME 9.5 FL (7.0-11.0); PLATELET COUNT 167 TH/MM3 (150-450); RED CELL DISTRIBUTION WIDTH 19.8 % (11.6-17.2); WHITE BLOOD COUNT 5.3 TH/MM3 (4.0-11.0)
[2017-06-03 07:08] LABS: MEAN CORPUSCULAR HGB CONC 28.5 % (32.0-36.0)
[2017-06-03 07:24] VITALS: BP 125/80; PULSE 80; RESP 18; TEMP 98; O2SAT 100
[2017-06-03 07:38] LABS: BICARBONATE 25.3 MEQ/L (21.0-32.0); CALCIUM 8.1 MG/DL (8.5-10.1); CREATININE 0.6 MG/DL (0.50-1.00)
[2017-06-03] MEDS: FERROUS SULFATE 325 MG (65 MG ELEMENTAL IRON) TAB PO SCH ×2 (08:26→19:26)
[2017-06-03] MEDS: TAMSULOSIN HCL 0.4 MG CAP PO SCH (08:26)
[2017-06-03] MEDS: KETOROLAC TROMETHAMINE 30 MG/ML (IVP) VIAL IV PUSH SCH ×3 (08:27→16:56)
[2017-06-03 11:11] VITALS: BP 153/83; PULSE 75; RESP 18; TEMP 98.3; O2SAT 100
--- NOTE | 2017-06-03 11:35 | HHI.PR ---
Subjective Remarks Follow-up for kidney stones and hydronephrosis Patient stated that pain is better controlled. She continues to have the pain though. Deny nausea or vomiting. Deny any active bleeding at all. When I went over results with patient's vaginal ultrasound she stated that sporadically she would have very heavy bleeding at times in this is random. Heavy bleeding to last for entire week. At times she would have bleeding for 3 weeks but the heavy bleeding part would be for 1 week. Otherwise no other complaints. Objective Vitals Vital Signs Date Time Temp Pulse Resp B/P (MAP) Pulse Ox O2 Delivery O2 Flow Rate FiO2 06/03/17 11:11 98.3 75 18 153/83 (106) 100 06/03/17 07:24 98.0 80 18 125/80 (95) 100 06/03/17 03:50 20 06/03/17 03:38 98.4 76 16 124/84 (97) 100 06/02/17 23:23 98.9 91 16 117/71 (86) 99 06/02/17 19:59 98.8 95 16 179/81 (113) 100 06/02/17 11:53 98.6 80 18 122/60 (80) 98 I/O 06/02/17 06/02/17 06/02/17 06/03/17 06/03/17 06/03/17 07:00 15:00 23:00 07:00 15:00 23:00 Intake Total 240 ml 1350 ml 900 ml Balance 240 ml 1350 ml 900 ml Intake Oral 240 ml 250 ml IV Total 1100 ml 900 ml # Voids 3 Result Diagram: 06/03/17 0551 06/03/17 0551 Imaging Last Impressions Pelvis Ultrasound 06/02/17 0000 Signed Impressions: Service Date/Time: Friday, June 02, 2017 13:04 - CONCLUSION: 1. Prominent endometrium likely related to normal phase of menstrual cycle. 2. Probable uterine leiomyoma measuring 1.2 cm. 3. Small complex cysts right ovary measures 2.1 cm. Chris Hilton MD Abdomen/Pelvis CT 06/01/17 0000 Signed Impressions: Service Date/Time: Thursday, June 01, 2017 17:08 - CONCLUSION: 1. 5 x 10 mm proximal right ureteral calculus with mild hydroureter and hydronephrosis. 2. Cystic structure in the right adnexa. Niall Rangel MD Objective Remarks GENERAL: in NAD NECK: Supple, trachea midline. No JVD or lymphadenopathy. CARDIOVASCULAR: Regular rate and rhythm without murmurs, gallops, or rubs. RESPIRATORY: Breath sounds equal bilaterally. No accessory muscle use. GASTROINTESTINAL: Abdomen soft and nondistended. B/L lower abdominal pain. MUSCULOSKELETAL: No cyanosis, or edema. BACK: Nontender without obvious deformity. No CVA tenderness. Medications and IVs Current Medications Morphine Sulfate (Morphine Inj) 4 mg ONCE ONCE IV PUSH Last administered on 15:54; Start 06/01/17 at 15:15; Stop 06/01/17 at 15:16; Status DC Ondansetron HCl (Zofran Inj) 4 mg ONCE ONCE IVP Last administered on 06/01/17 15:54; Start 06/01/17 at 15:15; Stop 06/01/17 at 15:16; Status DC Sodium Chloride 1,000 ml @ 1,000 mls/hr Q1H IV Last administered on 06/01/17 15:54; Start 06/01/17 at 15:08; Stop 06/01/17 at 16:07; Status DC Ketorolac Tromethamine (Toradol Inj) 60 mg ONCE ONCE IM Last administered on at 15:55; Start 06/01/17 at 15:15; Stop 06/01/17 at 15:16; Status DC Iohexol (Omnipaque 350 Inj) 96 ml STK-MED ONCE IVCONTRAST Last administered on 06/01/17 17:21; Start 06/01/17 at 14:16; Stop 06/01/17 at 17:20; Status DC Tamsulosin HCl (Flomax) 0.4 mg ONCE ONCE PO Last administered on 06/01/17 20: 01; Start 06/01/17 at 18:00; Stop 06/01/17 at 18:01; Status DC Sodium Chloride 1,000 ml @ 100 mls/hr Q10H IV Last administered on 06/03/17 08 :27; Start 06/01/17 at 18:30 Ondansetron HCl (Zofran Inj) 4 mg Q8HR PRN IV PUSH NAUSEA; Start 06/01/17 at 18: 30 Acetaminophen/ Hydrocodone Bitart ([place] 5-325 Mg) 1 tab Q4H PRN PO PAIN 1-5 Last administered on 06/03/17 02:49; Start 06/01/17 at 18:30 Morphine Sulfate (Morphine Inj) 2 mg Q4H PRN IV PUSH PAIN 6-10 Last administered on 06/02/17 03:14; Start 06/01/17 at 18:30 Enalaprilat (Vasotec Inj) 1.25 mg Q8H PRN IV PUSH SBP> OR = 180, DBP> OR = 100 ; Start 06/01/17 at 18:30 Tamsulosin HCl (Flomax) 0.4 mg DAILY PO Last administered on 06/03/17 08:26; Start 06/02/17 at 09:00 Ferrous Sulfate (Ferrous Sulfate) 325 mg BID PO Last administered on 06/03/17 08:26; Start 06/02/17 at 21:00 Ketorolac Tromethamine (Toradol Inj) 15 mg TID IV PUSH Last administered on 06/03 08:27; Start 06/02/17 at 13:00; Stop 06/07/17 at 12:59 A/P Problem List: (1) Anemia ICD Code: D64.9 - Anemia, unspecified Status: Acute (2) Nephrolithiasis ICD Code: N20.0 - Calculus of kidney Status: Acute (3) Hydronephrosis ICD Code: N13.30 - Unspecified hydronephrosis Status: Acute Assessment and Plan This is a 47-year-old female who presented with abdominal pain Nephrolithiasis with right-sided hydronephrosis -Found on CT scan of the abdomen/pelvis. -Patient currently on start on Flomax - continue with pain control, and antiemetics as needed -Urologist seen patient and patient scheduled for possible stent placement today. Anemia -Hemoglobin stable. TSH within normal limits. -Pelvic/transvaginal ultrasound shows fibroid and a small complex cyst measuring 2.1 cm to be f/u as outpatient. 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 -Patient on ferrous sulfate. DVT prophylaxis with SCD's. Problem Qualifiers (1) Anemia: Qualified Codes: D64.89 - Other specified anemias (2) Hydronephrosis: Qualified Codes: N13.2 - Hydronephrosis with renal and ureteral calculous obstruction Greer Smith MD Jun 03, 2017 11:35
[2017-06-03] MEDS ORDERED: ONDANSETRON HCL 4 MG/2 ML VIAL IV PUSH ONE (12:00)
[2017-06-03] MEDS ORDERED: ePHEDrine/NS 25 MG/5 ML SYRINGE IV ONE (12:00)
[2017-06-03] MEDS ORDERED: LACTATED RINGER'S 1000 ML INJ 1,000 ML IV ONE (12:00)
[2017-06-03] MEDS ORDERED: PHENYLEPH/NS 1000 MCG/10 ML SYR IV ONE (12:00)
[2017-06-03] MEDS ORDERED: ceFAZolin INJ 1,000 MG VIAL IV ONE ×2 (12:00→13:50)
[2017-06-03] MEDS ORDERED: DEXAMETHASONE SOD PHOS 4 MG/ML VIAL IV ONE (12:00)
[2017-06-03] MEDS ORDERED: PROPOFOL 200 MG/20 ML AMP IV ONE (12:00)
[2017-06-03] MEDS ORDERED: LIDOCAINE HCL 1% PF 5 ML SYRINGE OTHER ONE (12:00)
[2017-06-03] MEDS ORDERED: MIDAZOLAM HCL 2 MG/2 ML VIAL ONE (13:03)
--- NOTE | 2017-06-03 14:07 | HHI.PR ---
Subjective Patient symptoms today Successful right ureteral stent placement -Patient is clear for discharge from Urology standpoint -Patient is to followup with Urology in clinic for treatment of her right stone burden and stent removal -Please call with questions Objective Vital Signs Vital Signs Date Time Temp Pulse Resp B/P (MAP) Pulse Ox O2 Delivery O2 Flow Rate FiO2 06/03/17 11:11 98.3 75 18 153/83 (106) 100 06/03/17 07:24 98.0 80 18 125/80 (95) 100 06/03/17 03:50 20 06/03/17 03:38 98.4 76 16 124/84 (97) 100 06/02/17 23:23 98.9 91 16 117/71 (86) 99 06/02/17 19:59 98.8 95 16 179/81 (113) 100 Intake & Output 06/03/17 06/03/17 07:00 19:00 Intake Total 1400 ml Output Total 1 ml Balance 1399 ml IV Total 1400 ml Output Estimated Blood Loss 1 ml Result Diagram: 06/03/17 0551 06/03/17 0551 Medications and IVs Current Medications Medications (Trade) Dose Ordered Sig/Jay Route Start Time Stop Time Status Last Admin Sodium Chloride 1,000 ml @ 100 mls/hr Q10H IV 06/01/17 18:30 06/03/17 08:27 (Zofran Inj) 4 mg Q8HR PRN IV PUSH 06/01/17 18:30 ([place] 5-325 Mg) 1 tab Q4H PRN PO 06/01/17 18:30 06/03/17 02:49 (Morphine Inj) 2 mg Q4H PRN IV PUSH 06/01/17 18:30 06/02/17 03:14 (Vasotec Inj) 1.25 mg Q8H PRN IV PUSH 06/01/17 18:30 (Flomax) 0.4 mg DAILY PO 06/02/17 09:00 06/03/17 08:26 (Ferrous Sulfate) 325 mg BID PO 06/02/17 21:00 06/03/17 08:26 (Toradol Inj) 15 mg TID IV PUSH 06/02/17 13:00 06/07/17 12:59 06/03/17 08:27 Noah Chahal MD Jun 03, 2017 14:07
[2017-06-03] MEDS ORDERED: DO NOT ADM ANY ANTICOAGULANT DRUGS PRN (14:12)
[2017-06-03] MEDS ORDERED: *ENALAPRILAT 1.25 MG/ML VIAL PERIprocedural Use ONLY ONE (14:57)
--- NOTE | 2017-06-03 15:41 | MP ---
cc: CHICO ARIAS MD DATE OF SURGERY: 06/03/2017. PREOPERATIVE DIAGNOSIS: Right sided nephrolithiasis. POSTOPERATIVE DIAGNOSIS: Right sided nephrolithiasis. OPERATION: 1. Cystoscopy. 2. Right ureteral stent placement, a 6 x 24 double-J ureteral stent. SURGEON: Chico Arias MD. PERTINENT FINDINGS: 1. Successful placement of a right 6 x 24 double-J ureteral stent. 2. Visualization of right proximal ureteral stone noted on fluoroscopic images. INDICATIONS FOR THE PROCEDURE: Vicki Hardin is a 47-year-old female with right-sided proximal nephrolithiasis measuring approximately 10 mm in longest diameter. Her pain has been persistent and under control with pain medications. Therefore she presents now for a right ureteral stent placement. DESCRIPTION OF THE PROCEDURE IN DETAIL: After prior informed consent was obtained, the patient was brought to the operating room and remained supine on the operating room table. Bilateral lower extremity SCDs were in place. The patient was then placed under general anesthesia. The patient was then placed in the lithotomy position and prepped and draped in the standard surgical fashion. After a proper time out was completed, the rigid cystoscope was inserted per the urethra and bladder. The urethral mucosa was within normal limits without abnormalities or lesions identified. Of note, there was significant prolapse noted. At this point, the scope was advanced into the urethra and into the bladder and bilateral ureteral orifices were identified. The right ureteral orifice was noted and cannulated using a guidewire. The wire was advanced up to the right renal pelvis and this was confirmed to be in position via fluoroscopy. At this point, a 6 x 24 double J ureteral stent was successfully placed in the right collecting system with a good curl in the renal pelvis as well as in the bladder. At this point, the patient's bladder was emptied and the scope was removed. The patient tolerated the procedure well. There were no complications. DISPOSITION: The patient will be returned to her inpatient bed. She is cleared for discharge from a urology standpoint and may follow up as an outpatient for treatment of her stone and stent. The patient understands that follow up is important as the stone remains and leaving a stent for a prolonged period of time can result in further calcification and renal damage. The patient understands that and agrees to follow up as an outpatient. Roverto Pretty/LEVY /2:03 PM /3:30 PM
[2017-06-03 15:46] VITALS: BP 139/88; PULSE 74; RESP 18; TEMP 97.6; O2SAT 100
[2017-06-03 20:00] VITALS: BP 131/81; PULSE 78; RESP 20; TEMP 97.6; O2SAT 98
[2017-06-04] VITALS: BP 142/89; PULSE 79; RESP 18; TEMP 97.6; O2SAT 97
[2017-06-04] MEDS: ACETAMINOPHEN/HYDROcodone 325 MG/5 MG TAB PO PRN ×2 (00:38→04:59)
[2017-06-04] MEDS: SODIUM CHLOR 0.9% 1000 ML INJ 1,000 ML IV SCH (05:00)
[2017-06-04 07:43] LABS: HEMATOCRIT 24.8 % (35.0-46.0); HEMOGLOBIN 7.2 GM/DL (11.6-15.3); MEAN CELL VOLUME 55.6 FL (80.0-100.0); MEAN CORPUSCULAR HEMOGLOBIN 16.2 PG (27.0-34.0); MEAN CORPUSCULAR HGB CONC 29.2 % (32.0-36.0); MEAN PLATELET VOLUME 9.5 FL (7.0-11.0); PLATELET COUNT 175 TH/MM3 (150-450); RED BLOOD COUNT 4.46 MIL/MM3 (4.00-5.30); RED CELL DISTRIBUTION WIDTH 19.7 % (11.6-17.2); WHITE BLOOD COUNT 6.7 TH/MM3 (4.0-11.0)
[2017-06-04] MEDS: KETOROLAC TROMETHAMINE 30 MG/ML (IVP) VIAL IV PUSH SCH ×2 (07:58→13:25)
[2017-06-04] MEDS: FERROUS SULFATE 325 MG (65 MG ELEMENTAL IRON) TAB PO SCH (07:58)
[2017-06-04] MEDS: TAMSULOSIN HCL 0.4 MG CAP PO SCH (07:58)
[2017-06-04 08:00] VITALS: BP 125/85; PULSE 74; RESP 16; TEMP 97.3; O2SAT 100
[2017-06-04 08:02] LABS: BICARBONATE 23.1 MEQ/L (21.0-32.0); CALCIUM 8.1 MG/DL (8.5-10.1); CREATININE 0.59 MG/DL (0.50-1.00)
--- NOTE | 2017-06-04 11:35 | HHI.PR ---
Subjective Remarks in no acute distress. has some lower abdominal pain. no nausea or vomiting. no sob. afebrile. Objective Vitals Vital Signs Date Time Temp Pulse Resp B/P (MAP) Pulse Ox O2 Delivery O2 Flow Rate FiO2 06/04/17 08:00 97.3 74 16 125/85 (98) 100 06/04/17 00:00 97.6 79 18 142/89 (106) 97 06/03/17 20:00 97.6 78 20 131/81 (98) 98 06/03/17 15:46 97.6 74 18 139/88 (105) 100 06/03/17 15:15 70 16 143/83 (103) 97 Room Air 06/03/17 15:00 70 16 154/92 (112) 97 Room Air 06/03/17 14:55 76 146/94 (111) 06/03/17 14:45 72 16 144/93 (110) 99 Room Air 06/03/17 14:30 78 16 138/90 (106) 97 Room Air 06/03/17 14:15 80 16 131/81 (98) 96 Room Air 06/03/17 14:12 97.9 100 16 127/78 (94) 95 Room Air I/O 06/03/17 06/03/17 06/03/17 06/04/17 06/04/17 06/04/17 07:00 15:00 23:00 07:00 15:00 23:00 Intake Total 1400 ml 1170 ml 680 ml Output Total 1 ml 950 ml Balance 1399 ml 220 ml 680 ml Intake Oral 120 ml 680 ml IV Total 1400 ml 1050 ml Output Urine Total 950 ml Estimated Blood Loss 1 ml # Voids 0 3 # Bowel Movements 0 Result Diagram: 06/04/17 0714 06/04/17 0714 Imaging Last Impressions Pelvis Ultrasound 06/02/17 0000 Signed Impressions: Service Date/Time: Friday, June 02, 2017 13:04 - CONCLUSION: 1. Prominent endometrium likely related to normal phase of menstrual cycle. 2. Probable uterine leiomyoma measuring 1.2 cm. 3. Small complex cysts right ovary measures 2.1 cm. Chris Hilton MD Abdomen/Pelvis CT 06/01/17 0000 Signed Impressions: Service Date/Time: Thursday, June 01, 2017 17:08 - CONCLUSION: 1. 5 x 10 mm proximal right ureteral calculus with mild hydroureter and hydronephrosis. 2. Cystic structure in the right adnexa. Niall Rangel MD Objective Remarks GENERAL: This is a well-nourished, well-developed patient, in no apparent distress. CARDIOVASCULAR: Regular rate and regular rhythm without murmurs, gallops, or rubs. RESPIRATORY: Clear to auscultation. Breath sounds equal bilaterally. No wheezes , rales, or rhonchi. GASTROINTESTINAL: Abdomen soft, non-tender, nondistended. Normal, active bowel sounds MUSCULOSKELETAL: Extremities without clubbing, cyanosis, or edema. NEURO: Alert & Oriented x4 to person, place, time, situation. Moves all ext x4 Procedures cystoscopy/ureteral stent placement. Medications and IVs Inpatient Medications Acetaminophen/ Hydrocodone Bitart ([place] 5-325 Mg) 1 tab Q4H PRN PO PAIN 1-5 Last administered on 06/04/17at 04:59; Start 06/01/17 at 18:30 Cefazolin Sodium (Ancef Inj) 2,000 mg ONCE ONCE IV Last administered on at 13:50; Start 06/03/17 at 13:50; Stop 06/03/17 at 14:02; Status DC Enalaprilat (Vasotec Inj) 1.25 mg Q8H PRN IV PUSH SBP> OR = 180, DBP> OR = 100 ; Start 06/01/17 at 18:30 Ferrous Sulfate (Ferrous Sulfate) 325 mg BID PO Last administered on 06/04/17at 07:58; Start 06/02/17 at 21:00 Ketorolac Tromethamine (Toradol Inj) 15 mg TID IV PUSH Last administered on 06/04at 07:58; Start 06/02/17 at 13:00; Stop 06/07/17 at 12:59 Miscellaneous Information ALL NURSING DEPARTME... UNSCH PRN .XX SEE LABEL COMMENTS; Start 06/03/17 at 14:12; Stop 06/04/17 at 14:11 Morphine Sulfate (Morphine Inj) 2 mg Q4H PRN IV PUSH PAIN 6-10 Last administered on 06/02/17at 03:14; Start 06/01/17 at 18:30 Ondansetron HCl (Zofran Inj) 4 mg Q8HR PRN IV PUSH NAUSEA; Start 06/01/17 at 18: 30 Sodium Chloride 1,000 ml @ 100 mls/hr Q10H IV Last administered on 06/04/17at 05 :00; Start 06/01/17 at 18:30 Tamsulosin HCl (Flomax) 0.4 mg DAILY PO Last administered on 06/04/17at 07:58; Start 06/02/17 at 09:00 A/P Problem List: (1) Anemia ICD Code: D64.9 - Anemia, unspecified Status: Acute (2) Nephrolithiasis ICD Code: N20.0 - Calculus of kidney Status: Acute (3) Hydronephrosis ICD Code: N13.30 - Unspecified hydronephrosis Status: Acute Assessment and Plan Nephrolithiasis with right-sided hydronephrosis -Found on CT scan of the abdomen/pelvis. -Patient currently on start on Flomax - continue with pain control, and antiemetics as needed -s/p cystoscopy and right ureteral stent placement. Anemia -Hemoglobin stable. TSH within normal limits. -Pelvic/transvaginal ultrasound shows fibroid and a small complex cyst measuring 2.1 cm to be f/u as outpatient. 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 -Patient on ferrous sulfate. DVT prophylaxis with SCD's. Discharge Planning dc home today. f/u; pcp,IT SECURITY MANAGER and urology. case management to assist with outpatient f/u's. d/w the patient and case management. Problem Qualifiers (1) Anemia: Qualified Codes: D64.89 - Other specified anemias (2) Hydronephrosis: Qualified Codes: N13.2 - Hydronephrosis with renal and ureteral calculous obstruction Jonn Lombardi MD Jun 04, 2017 11:35
[2017-06-04] MEDS ORDERED: TAMS5CAP PO (11:37)
[2017-06-04] MEDS ORDERED: NORC5TAB PO (11:37)
[2017-06-04] MEDS ORDERED: FERR325T20 PO (11:37)
--- NOTE | 2017-06-04 11:39 | HHI.DS ---
Discharge Summary Admission Date Jun 01, 2017 at 18:11 Discharge Date: Jun 04, 2017 Admitting Diagnosis Hydronephrosis, nephrolithiasis (1) Anemia ICD Code: D64.9 - Anemia, unspecified Diagnosis: Principal Status: Acute (2) Nephrolithiasis ICD Code: N20.0 - Calculus of kidney Diagnosis: Principal Status: Acute (3) Hydronephrosis ICD Code: N13.30 - Unspecified hydronephrosis Diagnosis: Principal Status: Acute Procedures cystoscopy/ureteral stent placement. Brief History - From Admission patient is a 47 y/o female with history of kidney stone who presented to ER with right-sided flank pain. she says that the pain started yesterday and gradually got worse. pain was associated with nausea, chills and hematuria. she denies any fever, vomiting. she was found to have anemia at the time of presentation. on further questioning she says that she heavy menstrual bleeding in the past although they've been regular. she denies any blood in the stool or dark stools. CBC/BMP: 06/04/17 0714 06/04/17 0714 Significant Findings Laboratory Tests Test 06/01/17 15:30 06/01/17 15:40 06/02/17 05:27 06/02/17 16:57 Hemoglobin 8.0 GM/DL (11.6-15.3) 7.0 GM/DL (11.6-15.3) 7.7 GM/DL (11.6-15.3) Hematocrit 27.8 % (35.0-46.0) 24.6 % (35.0-46.0) Mean Corpuscular Volume 55.5 FL (80.0-100.0) 55.6 FL (80.0-100.0) Mean Corpuscular Hemoglobin 16.1 PG (27.0-34.0) 15.7 PG (27.0-34.0) Mean Corpuscular Hemoglobin Concent 28.9 % (32.0-36.0) 28.3 % (32.0-36.0) Red Cell Distribution Width 19.7 % (11.6-17.2) 19.8 % (11.6-17.2) Neutrophils (%) (Auto) 77.9 % (16.0-70.0) Lymphocytes # (Auto) 0.9 TH/MM3 (1.0-4.8) Platelet Morphology Comment GIANT (NORMAL) ENLARGED (NORMAL) Ovalocytes 1+ (NORMAL) 1+ (NORMAL) Keratocytes OCC (NORMAL) Activated Partial Thromboplast Time 23.6 SEC (24.3-30.1) Aspartate Amino Transf (AST/SGOT) 12 U/L (15-37) Estimat Glomerular Filtration Rate 86 ML/MIN (>89) Iron Level 13 MCG/DL (50-170) Total Iron Binding Capacity 472 MCG/DL (250-450) Percent Iron Saturation 2.8 % (20-50) Ferritin 2 NG/ML (8-252) Urine Occult Blood MOD (NEG) Urine Leukocyte Esterase SMALL (NEG) Urine RBC 7 /hpf (0-3) Urine Bacteria OCC /hpf (NONE) Urine Mucus FEW /lpf (OCC) Monocytes (%) (Auto) 10.4 % (0.0-8.0) Test 06/03/17 05:51 06/04/17 07:14 Hemoglobin 7.1 GM/DL (11.6-15.3) 7.2 GM/DL (11.6-15.3) Hematocrit 24.9 % (35.0-46.0) 24.8 % (35.0-46.0) Mean Corpuscular Volume 55.4 FL (80.0-100.0) 55.6 FL (80.0-100.0) Mean Corpuscular Hemoglobin 15.8 PG (27.0-34.0) 16.2 PG (27.0-34.0) Mean Corpuscular Hemoglobin Concent 28.5 % (32.0-36.0) 29.2 % (32.0-36.0) Red Cell Distribution Width 19.8 % (11.6-17.2) 19.7 % (11.6-17.2) Calcium Level 8.1 MG/DL (8.5-10.1) 8.1 MG/DL (8.5-10.1) Chloride Level 108 MEQ/L (98-107) 108 MEQ/L (98-107) Random Glucose 125 MG/DL (74-106) Imaging Last Impressions Pelvis Ultrasound 06/02/17 0000 Signed Impressions: Service Date/Time: Friday, June 02, 2017 13:04 - CONCLUSION: 1. Prominent endometrium likely related to normal phase of menstrual cycle. 2. Probable uterine leiomyoma measuring 1.2 cm. 3. Small complex cysts right ovary measures 2.1 cm. Chris Hilton MD Abdomen/Pelvis CT 06/01/17 0000 Signed Impressions: Service Date/Time: Thursday, June 01, 2017 17:08 - CONCLUSION: 1. 5 x 10 mm proximal right ureteral calculus with mild hydroureter and hydronephrosis. 2. Cystic structure in the right adnexa. Niall Rangel MD PE at Discharge GENERAL: This is a well-nourished, well-developed patient, in no apparent distress. CARDIOVASCULAR: Regular rate and regular rhythm without murmurs, gallops, or rubs. RESPIRATORY: Clear to auscultation. Breath sounds equal bilaterally. No wheezes , rales, or rhonchi. GASTROINTESTINAL: Abdomen soft, non-tender, nondistended. Normal, active bowel sounds MUSCULOSKELETAL: Extremities without clubbing, cyanosis, or edema. NEURO: Alert & Oriented x4 to person, place, time, situation. Moves all ext x4 Hospital Course patient was admitted with nephrolithiasis- patient was seen by urology and underwent cystoscopy and right ureteral stent placement. she was found to have anemia. she will be discharged on iron supplement and needs a f/u with [employer] which was d/w the patient before discharge. patient needs a f/u with her pcp and urology as outpatient. Pt Condition on Discharge: Fair Discharge Disposition: Discharge Home Discharge Time: <= 30 minutes Discharge Instructions DIET: Follow Instructions for: As Tolerated, No Restrictions Activities you can perform: Regular-No Restrictions Jonn Lombardi MD Jun 04, 2017 11:39
[2017-06-04 12:00] VITALS: BP 140/86; PULSE 85; RESP 16; TEMP 98.8; O2SAT 98
== END 2017-06-04 13:21 | disposition home or self-care (01) | DRG 694 ==
LOC: NEPC 14:15 → NEDA 18:11 → NEPFCDU 19:18 → OBSVTOIN 06-03 15:23 → N07B 06-03 17:05
PROVIDERS: ADMIT Internal Medicine; ATTEND Internal Medicine
PROC: 0T768DZ Dilation of Right Ureter with Intraluminal Device, Via Natural or Artificial Opening Endoscopic (ICD-10-PCS; principal; 2017-06-03 13:27)
DX: N13.2 Hydronephrosis with renal and ureteral calculous obstruction (principal); D50.9 Iron deficiency anemia, unspecified; F17.210 Nicotine dependence, cigarettes, uncomplicated; D64.89 Other specified anemias; N94.89 Other specified conditions associated with female genital organs and menstrual cycle; N93.9 Abnormal uterine and vaginal bleeding, unspecified; R68.83 Chills (without fever); Z87.442 Personal history of urinary calculi
CPT/HCPCS: 74177; 76000; 76856; 80048; 80053; 81001; 82728; 83540; 83550; 83690; 84443; 84703; 85018; 85025; 85027; 85610; 85730; 86850; 86900; 86901; 93005; 96361; 96374; 96375; 96376; C1769; C2617; G0378; J0690; J1100; J1885; J2250; J2270; J2370; J2405; J3010; J7030; J7120; Q9967

== ENCOUNTER 2017-08-24 16:20 | Emergency (ER) | payer OTHER ==
[~2017-08-24] VITALS: Ht 157.5 cm; Wt 75.0 kg
[~2017-08-24 16:20] MED LIST changes: -DICL75 PO; +FERR325T20 PO; +NORC5TAB PO; +TAMS5CAP PO
[2017-08-24 16:38] VITALS: BP 186/99; PULSE 77; RESP 18; TEMP 97.7; O2SAT 100
--- NOTE | 2017-08-24 17:10 | RADRPT ---
EXAM DATE/TIME: 08/24/2017 16:58 [facility] COMPARISON: No previous studies available for comparison. INDICATIONS : Pain in mid-humerus post fall today at work. MEDICAL HISTORY : None. SURGICAL HISTORY : None. ENCOUNTER: Initial ACUITY: 1 day PAIN SCORE: 7/10 LOCATION: Right Humerus. FINDINGS: Two view examination of the right humerus demonstrates no evidence of fracture or dislocation. Bony mineralization is normal. The soft tissue structures are intact. CONCLUSION: Unremarkable examination of the right humerus. William Hanna MD on August 24, 2017 at 17:07 Board Certified Radiologist. This report was verified electronically.
--- NOTE | 2017-08-24 17:46 | PD ---
HPI Chief Complaint: Injury Time Seen by Provider: 17:46 Travel History International Travel<30 days: No Contact w/Intl Traveler<30days: No Traveled to known affect area: No History of Present Illness HPI 47-year-old female presents emergency department status post fall at work on the wet floor landing on her right upper shoulder area. Patient is here with pain to the right shoulder and decreased range of motion secondary to pain. Patient denies hitting her head or loss of consciousness he has no neck pain, chest pain, abdominal pain, or other extremity pain. She has no numbness or tingling in the right arm. Pain in the right upper arm is 10 out of 10. She is wearing and provide a sling upon arrival. This is a workplace injury. She has no known drug allergies. PFSH Past Medical History Genitourinary: Yes (kidney stones) Hypertension: Yes Kidney Stones: Yes ?: Not LMP: 08/24/17 Past Surgical History Genitourinary Surgery: Yes (STENT PLACED IN KIDNEY) Social History Alcohol Use: Yes (SOCIAL) Tobacco Use: Yes (/2 PPD) Substance Use: No Allergies-Medications (Allergen,Severity, Reaction): Coded Allergies: No Known Allergies (Unverified Allergy, Unknown, 08/24/17) Reported Meds & Prescriptions Reported Meds & Active Scripts Active Ibuprofen 600 Mg Tab 600 Mg PO Q6H PRN Review of Systems General / Constitutional: No: Fever Eyes: No: Visual changes HENT: No: Headaches Cardiovascular: No: Chest Pain or Discomfort Respiratory: No: Shortness of Breath Gastrointestinal: No: Abdominal Pain Genitourinary: No: Dysuria Musculoskeletal: Positive: Arthralgias, Limited ROM, Pain Skin: No Rash Neurologic: No: Weakness Psychiatric: No: Depression Endocrine: No: Polydipsia Hematologic/Lymphatic: No: Easy Bruising Physical Exam Narrative GENERAL: Patient appears in moderate distress per SKIN: Warm and dry. Normal color. Normal turgor. No abrasions. No open wounds. No obvious ecchymosis. HEAD: Atraumatic. Normocephalic. EYES: Pupils equal and round. No scleral icterus. No injection or drainage. ENT: No nasal bleeding or discharge. Mucous membranes pink and moist. Pharynx is clear. Airways patent. NECK: Trachea midline. No bony tenderness or step-off. Range of motion is full CARDIOVASCULAR: Regular rate and rhythm. RESPIRATORY: No accessory muscle use. Clear to auscultation. Breath sounds equal bilaterally. GASTROINTESTINAL: Abdomen soft, non-tender, nondistended. Hepatic and splenic margins not palpable. MUSCULOSKELETAL: Extremities without clubbing, cyanosis, or edema. Patient has pain to the anterior lateral right shoulder, without obvious swelling or deformity. Patient has normal movement of the right elbow, wrist, and hand. Patient is limited movement to the right shoulder secondary to pain only but no loss of function is noted. NEUROLOGICAL: Awake and alert. No obvious cranial nerve deficits. Motor grossly within normal limits. Five out of 5 muscle strength in the arms and legs. Normal speech. PSYCHIATRIC: Appropriate mood and affect; insight and judgment normal. Data Data Last Documented VS Vital Signs Date Time Temp Pulse Resp B/P (MAP) Pulse Ox O2 Delivery O2 Flow Rate FiO2 08/24/17 16:38 97.7 77 18 186/99 (128) 100 Orders Orders Humerus (Min 2vws) (08/24/17 ) Tramadol (Ultram) (08/24/17 18:15) Ibuprofen (Motrin) (08/24/17 18:15) MDM Medical Decision Making Medical Screen Exam Complete: Yes Emergency Medical Condition: Yes Differential Diagnosis Workplace injury. Accidental slip and fall. Right shoulder contusion. Possible fracture. Possible dislocation Narrative Course X-ray of the right shoulder is ordered in triage showing no obvious deformity/ fracture/dislocation. Patient is given ibuprofen 600 mg p.o. now. Patient is given tramadol 50 mg p.o. now. Patient is continued on ibuprofen 600 mg 4 times daily #40 per Patient can use extra strength Tylenol as well. Patient should use heat followed by ice frequently through the day. I encouraged the patient to use the arm as tolerated, but restrictions are given for work for the next week. Workers comp forms are completed. Patient to follow-up if symptoms do not improve or persist Diagnosis Primary Impression: Work related injury Additional Impression: Contusion of right shoulder, initial encounter Patient Instructions: Contusion in Adults (ED), General Instructions Additional Instructions: X-ray of the right shoulder is ordered in triage showing no obvious deformity/ fracture/dislocation. Patient is given ibuprofen 600 mg p.o. now. Patient is given tramadol 50 mg p.o. now. Patient is continued on ibuprofen 600 mg 4 times daily #40 per Patient can use extra strength Tylenol as well. Patient should use heat followed by ice frequently through the day. I encouraged the patient to use the arm as tolerated, but restrictions are given for work for the next week. Workers comp forms are completed. Patient to follow-up if symptoms do not improve or persist Med/Other Pt SpecificInfo: Prescription(s) given Scripts Ibuprofen (Ibuprofen) 600 Mg Tab 600 MG PO Q6H Y for Pain/Inflammation, #40 TAB 0 Refills Prov: Sven Riggins MD 08/24/17 Disposition: 01 DISCHARGE HOME Condition: Stable Yonatan Robbins Aug 24, 2017 17:46
[2017-08-24] MEDS ORDERED: IBUP-232 PO (18:01)
[2017-08-24] MEDS ORDERED: IBUPROFEN 600 MG TAB PO ONE (18:15)
[2017-08-24] MEDS ORDERED: traMADol HCL 50 MG TAB PO ONE (18:15)
== END 2017-08-24 18:27 | disposition home or self-care (01) ==
LOC: NEPD 16:20
DX: S40.011A Contusion of right shoulder, initial encounter (principal); W01.0XXA Fall on same level from slipping, tripping and stumbling without subsequent striking against object, initial encounter; Y99.0 Civilian activity done for income or pay
CPT/HCPCS: 73060; 99283

== ENCOUNTER 2017-09-15 15:28 | Emergency (ER) | payer SELFPAY ==
[~2017-09-15 15:28] MED LIST changes: -FERR325T20 PO; +IBUP-232 PO; -NORC5TAB PO; -TAMS5CAP PO
[2017-09-15 15:33] VITALS: BP 166/93; PULSE 94; RESP 16; TEMP 98.8; O2SAT 97
[2017-09-15 16:29] LABS: BILIRUBIN, URINE NEG (NEG); BLOOD, URINE LARGE (NEG); GLUCOSE,URINE NEG (NEG); KETONE, URINE NEG (NEG); NITRITE,URINE NEG (NEG); PH, URINE 5.5 (5.0-8.5); URINE COLOR YELLOW (YELLW/STRAW); URINE LEUKOCYTE ESTERASE LARGE (NEG)
[2017-09-15 16:51] LABS: BACTERIA, URINE MOD /hpf; SQUAMOUS EPITHELIAL CELL URINE 0-5 /hpf (0-5)
--- NOTE | 2017-09-15 17:14 | PD ---
HPI Chief Complaint: Flank/Kidney Pain Time Seen by Provider: 17:10 Travel History International Travel<30 days: No Contact w/Intl Traveler<30days: No Traveled to known affect area: No History of Present Illness HPI The patient's 48 years old and arrives here complaining of right flank pain. She has a history of renal stones and has a double-J nephroureteral stent placed causing fairly often pain with nausea. Hematuria is reported. She denies fever. No vomiting. An appointment with urology is scheduled for Sunday, about 4 days from today. The stent has been in for 4 months. The pain has been worse over the past 3 or 4 days. PFSH Past Medical History Gastrointestinal Disorders: No Genitourinary: Yes (kidney stones) Hypertension: Yes Kidney Stones: Yes ?: Not LMP: 08/11/2017 Past Surgical History Genitourinary Surgery: Yes (STENT PLACED IN KIDNEY) Social History Alcohol Use: Yes (SOCIAL) Tobacco Use: Yes (1/2 PPD) Substance Use: No Allergies-Medications (Allergen,Severity, Reaction): Coded Allergies: No Known Allergies (Unverified Allergy, Unknown, 09/15/17) Reported Meds & Prescriptions Reported Meds & Active Scripts Active Cipro (Ciprofloxacin HCl) 500 Mg Tab 500 Mg PO BID 7 Days Ibuprofen 600 Mg Tab 600 Mg PO Q6H PRN Review of Systems Except as stated in HPI: all other systems reviewed are Neg General / Constitutional: No: Fever Physical Exam Narrative GENERAL: 47-year-old female pleasant well-nourished well-developed, mild distress secondary to pain Vital Signs Date Time Temp Pulse Resp B/P (MAP) Pulse Ox O2 Delivery O2 Flow Rate FiO2 09/15/17 15:33 98.8 94 16 166/93 (117) 97 SKIN: Warm and dry. HEAD: Atraumatic. Normocephalic. EYES: Pupils equal and round. No scleral icterus. No injection or drainage. ENT: No nasal bleeding or discharge. Mucous membranes pink and moist. NECK: Trachea midline. No JVD. CARDIOVASCULAR: Regular rate and rhythm. RESPIRATORY: No accessory muscle use. Clear to auscultation. Breath sounds equal bilaterally. GASTROINTESTINAL: There is tenderness to percussion along the left flank. Abdomen soft. No focal tenderness. MUSCULOSKELETAL: Extremities without clubbing, cyanosis, or edema. No obvious deformities. NEUROLOGICAL: Awake and alert. No obvious cranial nerve deficits. Motor grossly within normal limits. Five out of 5 muscle strength in the arms and legs. Normal speech. PSYCHIATRIC: Appropriate mood and affect; insight and judgment normal. Data Data Last Documented VS Vital Signs Date Time Temp Pulse Resp B/P (MAP) Pulse Ox O2 Delivery O2 Flow Rate FiO2 09/15/17 15:33 98.8 94 16 166/93 (117) 97 Orders Orders Urinalysis - C+S If Indicated (09/15/17 15:44) Ed Urine Pregnancytest Poc (09/15/17 15:44) Urine Culture (09/15/17 15:54) Complete Blood Count With Diff (09/15/17 17:28) Basic Metabolic Panel (Bmp) (09/15/17 17:28) Ceftriaxone Inj (Rocephin Inj) (09/15/17 17:45) Fluconazole (Diflucan) (09/15/17 17:45) Iv Access Insert/Monitor (09/15/17 17:33) Ecg Monitoring (09/15/17 17:33) Oximetry (09/15/17 17:33) Sodium Chlor 0.9% 1000 Ml Inj (Ns 1000 M (09/15/17 17:33) Sodium Chloride 0.9% Flush (Ns Flush) (09/15/17 17:45) Ketorolac Inj (Toradol Inj) (09/15/17 17:45) Morphine Inj (Morphine Inj) (09/15/17 17:45) Labs Laboratory Tests Test 09/15/17 15:54 09/15/17 17:32 Urine Color YELLOW Urine Turbidity HAZY Urine pH 5.5 Urine Specific [place] 1.022 Urine Protein 100 mg/dL Urine Glucose (UA) NEG mg/dL Urine Ketones NEG mg/dL Urine Occult Blood LARGE Urine Nitrite NEG Urine Bilirubin NEG Urine Urobilinogen LESS THAN 2.0 MG/DL Urine Leukocyte Esterase LARGE Urine RBC 55 /hpf Urine WBC 15 /hpf Urine Squamous Epithelial Cells 0-5 /hpf Urine Bacteria MOD /hpf Urine Yeast (Budding) FEW Microscopic Urinalysis Comment CULTURE INDICATED White Blood Count 6.0 TH/MM3 Red Blood Count 4.24 MIL/MM3 Hemoglobin 7.3 GM/DL Hematocrit 25.3 % Mean Corpuscular Volume 59.6 FL Mean Corpuscular Hemoglobin 17.3 PG Mean Corpuscular Hemoglobin Concent 29.0 % Red Cell Distribution Width 18.7 % Platelet Count 189 TH/MM3 Mean Platelet Volume 9.4 FL Neutrophils (%) (Auto) 66.5 % Lymphocytes (%) (Auto) 22.7 % Monocytes (%) (Auto) 8.7 % Eosinophils (%) (Auto) 1.2 % Basophils (%) (Auto) 0.9 % Neutrophils # (Auto) 4.0 TH/MM3 Lymphocytes # (Auto) 1.4 TH/MM3 Monocytes # (Auto) 0.5 TH/MM3 Eosinophils # (Auto) 0.1 TH/MM3 Basophils # (Auto) 0.1 TH/MM3 CBC Comment AUTO DIFF Differential Comment AUTO DIFF CONFIRMED Platelet Estimate NORMAL Platelet Morphology Comment NORMAL Tear Drop Cells 1+ Ovalocytes 2+ Blood Urea Nitrogen 15 MG/DL Creatinine 0.80 MG/DL Random Glucose 88 MG/DL Calcium Level 8.1 MG/DL Sodium Level 142 MEQ/L Potassium Level 3.7 MEQ/L Chloride Level 109 MEQ/L Carbon Dioxide Level 25.5 MEQ/L Anion Gap 8 MEQ/L Estimat Glomerular Filtration Rate 77 ML/MIN [facility] Medical Decision Making Medical Screen Exam Complete: Yes Emergency Medical Condition: Yes Medical Record Reviewed: Yes Differential Diagnosis Constipation, Gastritis, Acute Cholecystitis, Biliary Colic, Pancreatitis, BREWSTER , Hepatitis, Bowel Obstruction, Cystitis, Mesenteric Ischemia, AAA, Appendicitis , Renal Stone/Hydronephrosis, GERD, perforated viscous Narrative Course Patient has pain related to the presence of a double-J nephroureteral stent which has been in place for a few months now. The patient is scheduled to follow-up with urology in 3 days. In this setting we can send the patient home with pain control. There is yeast in the urine which prompted the blood work evaluation yielding only stable anemia with no significant leukocytosis or evidence of renal injury or impairments. In this scenario is considered safe and reasonable discharge the patient. She received oral Diflucan here as well as 1 g of Rocephin. We will send the patient home with Cipro and a 14 day course of Diflucan. Diagnosis Primary Impression: History of renal stent Additional Impressions: UTI (urinary tract infection) Qualified Codes: N30.01 - Acute cystitis with hematuria Candiduria Referrals: Noah Chahal MD 3 days Med/Other Pt SpecificInfo: Prescription(s) given Scripts Fluconazole (Diflucan) 200 Mg Tab 200 MG PO DAILY for Infection for 10 Days, #10 TAB 0 Refills Prov: Jasper Blnaca MD 09/15/17 Ciprofloxacin (Cipro) 500 Mg Tab 500 MG PO BID for Infection for 7 Days, #14 TAB 0 Refills Prov: Jasper Blanca MD 09/15/17 Disposition: 01 DISCHARGE HOME Condition: Stable Jasper Blanca MD September 15, 2017 17:14
[2017-09-15] MEDS ORDERED: SODIUM CHLOR 0.9% 1000 ML INJ 1,000 ML IV SCH (17:33)
[2017-09-15] MEDS ORDERED: FLUCONAZOLE 200 MG TAB PO ONE (17:45)
[2017-09-15] MEDS ORDERED: KETOROLAC TROMETHAMINE 30 MG/ML (IVP) VIAL IVP ONE (17:45)
[2017-09-15] MEDS ORDERED: MORPHINE SULFATE 8 MG/ML INJ IV PUSH ONE (17:45)
[2017-09-15] MEDS ORDERED: SODIUM CHLORIDE 0.9% FLUSH 10 ML FLUSH IV FLUSH PRN (17:45)
[2017-09-15] MEDS ORDERED: cefTRIAXone INJ 1,000 MG in SODIUM CHLORIDE 0.9% INJ 100 ML IV ONE (17:45)
[2017-09-15 17:56] LABS: BASOPHIL # 0.1 TH/MM3 (0-0.2); BASOPHIL % 0.9 % (0.0-2.0); EOSINOPHIL # 0.1 TH/MM3 (0-0.4); EOSINOPHIL % 1.2 % (0.0-4.0); HEMATOCRIT 25.3 % (35.0-46.0); HEMOGLOBIN 7.3 GM/DL (11.6-15.3); LYMPH % 22.7 % (9.0-44.0); LYMPHOCYTE # 1.4 TH/MM3 (1.0-4.8); MEAN CELL VOLUME 59.6 FL (80.0-100.0); MEAN CORPUSCULAR HEMOGLOBIN 17.3 PG (27.0-34.0); MEAN PLATELET VOLUME 9.4 FL (7.0-11.0); MONO % 8.7 % (0.0-8.0); MONOCYTE # 0.5 TH/MM3 (0-0.9); NEUT % 66.5 % (16.0-70.0); PLATELET COUNT 189 TH/MM3 (150-450); RED BLOOD COUNT 4.24 MIL/MM3 (4.00-5.30); RED CELL DISTRIBUTION WIDTH 18.7 % (11.6-17.2)
[2017-09-15 18:16] LABS: BICARBONATE 25.5 MEQ/L (21.0-32.0); CALCIUM 8.1 MG/DL (8.5-10.1); CREATININE 0.8 MG/DL (0.50-1.00)
[2017-09-15 18:22] LABS: OVALOCYTES 2+ (NORMAL); TEARDROP RBCS 1+ (NORMAL)
[2017-09-15] MEDS ORDERED: CIPR-9 PO (18:29)
[2017-09-15] MEDS ORDERED: DIFL200T PO (18:34)
[2017-09-15] MEDS ORDERED: TRAM50TA PO ×2 (18:48→18:52)
== END 2017-09-15 19:19 | disposition home or self-care (01) ==
LOC: NEPD 15:28
DX: N30.01 Acute cystitis with hematuria (principal); B37.49 Other urogenital candidiasis; R11.0 Nausea; B96.89 Other specified bacterial agents as the cause of diseases classified elsewhere; I10 Essential (primary) hypertension; Z72.0 Tobacco use; Z87.442 Personal history of urinary calculi
CPT/HCPCS: 80048; 81001; 84703; 85025; 87086; 96365; 96375; 99284; J0696; J1885; J2270; J7030

== ENCOUNTER → 2017-10-10 | Day surgery (SDC) | payer SELFPAY ==
[~2017-10-10] VITALS: Ht 157.5 cm; Wt 77.5 kg
[~2017-10-10] MED LIST changes: +*RESP: ALBUTEROL 2.5 MG/3 ML NEB (PRN) PERIprocedural Use ONLY NEB ONE; +CHLORHEXIDINE GLUCONATE 2 % 1 PACK (2 CLOTHS) TOPICAL PRN; +DO NOT ADM ANY ANTICOAGULANT DRUGS PRN; -IBUP-232 PO; +LACTATED RINGER'S 1000 ML IV PRN; +METOPROLOL TARTRATE 25 MG TAB PO PRN; +MIDAZOLAM HCL 2 MG/2 ML VIAL ONE; +PERC5TAB12 PO; +PHENYLEPH/NS 1000 MCG/10 ML SYR IV ONE; +POVIDONE IODINE 5% (ANTISEPSIS KIT) 4 APPLICATIONS EACH NARE PRN; +PROPOFOL 200 MG/20 ML AMP IV ONE; +SODIUM CHLORID 0.9% 500 ML IV PRN; +ceFAZolin 2 GM PREMIX 50 ML IV SCH; +oxyCODONE/ACETAMINOPHEN 5 MG/325 MG TAB ONE; +oxyCODONE/ACETAMINOPHEN 5 MG/325 MG TAB PO ONE
--- NOTE | 2017-10-10 10:43 | MP ---
cc: Noah Chahal MD DATE OF OPERATION: 10/10/2017 PREOPERATIVE DIAGNOSIS: Right-sided nephrolithiasis. POSTOPERATIVE DIAGNOSIS: Right-sided nephrolithiasis. SURGEON: Noah Chahal MD PROCEDURE PERFORMED: Right ESWL. PERTINENT FINDINGS: Right proximal ureteral stone adequately fragmented using ESWL and fluoroscopy. HISTORY OF PRESENT ILLNESS: The patient is a 47-year-old female who was found to have right nephrolithiasis, approximately 1 cm in size, underwent right ureteral stent placement. She now presents for definitive treatment with ESWL. PROCEDURE IN DETAIL: After proper informed consent was obtained, the patient was brought to the operating room and laid supine on the operating table. Bilateral SCDs were in place. The patient was placed under general anesthesia. The patient was placed in supine position. After proper timeout was completed, the fluoroscopy machine identified the stone located in the right proximal ureter adjacent to the right ureteral stent. At this point, 3000 shocks were administered to the stone. The stone appeared to have adequate fragmentation on fluoroscopic images. The patient was then awoken from anesthesia and taken to PACU in good and stable condition. The patient tolerated the procedure well with no complications. DISPOSITION: The patient will be discharged home. Followup in clinic with a KUB. Noah Chahal MD SML/TL , 10:00 AM , 10:42 AM
[2017-10-10 12:14] VITALS: BP 155/92; PULSE 59; RESP 18; TEMP 97.8; O2SAT 100
== END | disposition home or self-care (01) ==
LOC: HSDC 05:57
PROVIDERS: ATTEND Urology
DX: N20.0 Calculus of kidney (principal); I10 Essential (primary) hypertension
CPT/HCPCS: 00873; 50590; J0690; J2250; J2370; J3010; J7120; J7613